=== PATIENT | female | born 1940 | race Caucasian/White ===

== ENCOUNTER → 2016-12-24 | Outpatient (CLI) | payer MEDICARE, OTHER ==
[2016-12-24 09:39] LABS: BUN 19 mg/dL (7-18)
[2016-12-24 09:43] LABS: GFR (ESTIMATED) 70 ML/MIN (59-)
== END ==
LOC: LAB 08:36
PROVIDERS: Nurse Practitioner Family
DX: E78.00 Pure hypercholesterolemia, unspecified (principal)

== ENCOUNTER → 2017-05-21 | Outpatient (CLI) | payer MEDICARE, OTHER ==
[2017-05-21 09:01] LABS: HEMOGLOBIN 15.9 g/dL (12.2-16.2); LYMPH # 2.5 K/mm3 (0.7-4.5); LYMPH % 37.5 % (10-50.0)
[2017-05-21 10:11] LABS: BUN 13 mg/dL (7-18)
[2017-05-21 10:16] LABS: GFR (ESTIMATED) 61 ML/MIN (59-)
--- NOTE | 2017-05-22 15:51 | RADIOLOGY REPORT PS360 ---
DIG MAMM-SCREEN UNI-LT W/CAD ORDERING PHYSICIAN : Veronique Rodriguez APRN PATIENT AGE: 76 years GENDER: Female COMPARISON: April 2016, March 2014 also March 2013 HISTORY:76-year-old. No hormones no new complaints previous right mastectomy previous left breast needle biopsy. Family history. Mother with breast cancer age 66 TECHNIQUE: Std CC & MLO images were obtained. R2 CAD reviewed. FINDINGS: We again see scattered nodularity throughout the remaining left breast with no new dominant or suspicious mass. The scattered areas of minor nodularity are similar to previous studies. Multiplicity supports benign nature as well. The this similar pattern dates back to at least 2013 . There is metallic marker at the lateral left breast from previous percutaneous biopsy. IMPRESSION: Stable left breast with no significant new findings. Follow up one year recommended. BI-RADS CATEGORY: 2_Benign RECOMMENDED FOLLOWUP: 12M 12 MONTH FOLLOW-UP (A letter has been sent to the patient regarding results of the study.)
== END ==
LOC: LAB 08:41
PROVIDERS: Nurse Practitioner Family
DX: Z12.31 Encounter for screening mammogram for malignant neoplasm of breast (principal); I10 Essential (primary) hypertension; E78.2 Mixed hyperlipidemia; R63.5 Abnormal weight gain; R19.5 Other fecal abnormalities
CPT/HCPCS: G0202-LT-52